=== PATIENT | male | born 1955 | race Asian ===

== ENCOUNTER 2017-07-10 08:02 | Day surgery (SDC) | payer BC, OTHER ==
[2017-07-06 10:28] VITALS: BMI 22.5
[2017-07-10] MEDS ORDERED: LIDOCAINE HCL/PF 2% SDV 5ML VIAL ONE (08:05)
[2017-07-10] MEDS ORDERED: PROPOFOL 20 ML ONE ×2 (08:05)
[2017-07-10 09:20] VITALS: TEMP 98.9
[2017-07-10 09:41] VITALS: BP 106/72; PULSE 67
--- NOTE | 2017-07-12 17:09 | PATH ---
Surgical Pathology Report Patient Name: BALAJI MILES Med. Rec. #: [id number] /Age/Gender: 1955 (Age: 62) / M Account: [id number] Location: [facility]-END[facility]COPY Taken: 07/10/2017 Received: 07/10/2017 Reported: 07/12/2017 Physicians: Kelechi Campos M.D. Specimen(s) Received ASCENDING Clinical History Preoperative diagnosis: Family history of colon cancer Postoperative diagnoses: Polyp Final Diagnosis ASCENDING, BIOPSY: COLONIC MUCOSA SHOWING BENIGN/REACTIVE LYMPHOID AGGREGATE. Electronically Signed Tierney Pathak M.D. Gross Description Received in formalin, labeled "ascending" is a lemons, irregular portion of soft tissue measuring 0.2 cm. in greatest dimension. The specimen is submitted in toto in one cassette. 07/11/201707/11/2017
== END 2017-07-10 09:45 | disposition home or self-care (01) ==
LOC: FASU-ENDO 08:02
PROVIDERS: ATTEND Internal Medicine Gastroenterology
PROC: 0DBK8ZX Excision of Ascending Colon, Via Natural or Artificial Opening Endoscopic, Diagnostic (ICD-10-PCS; principal; 2017-07-10 08:49)
DX: Z12.11 Encounter for screening for malignant neoplasm of colon (principal); Z80.0 Family history of malignant neoplasm of digestive organs; Z83.71 Family history of colonic polyps; D12.2 Benign neoplasm of ascending colon
CPT/HCPCS: 88305-TC

== ENCOUNTER 2022-06-01 08:15 | Day surgery (SDC) | payer BC ==
[2022-05-25 13:31] VITALS: BMI 21.5
[2022-06-01 10:29] VITALS: RESP 18; TEMP 98
[2022-06-01 10:31] VITALS: BP 115/68; PULSE 65
== END 2022-06-01 10:56 | disposition home or self-care (01) ==
LOC: FASU-ENDO 08:15
PROVIDERS: ATTEND Internal Medicine Gastroenterology
PROC: 0DJD8ZZ Inspection of Lower Intestinal Tract, Via Natural or Artificial Opening Endoscopic (ICD-10-PCS; principal; 2022-06-01 09:51)
DX: Z12.11 Encounter for screening for malignant neoplasm of colon (principal); K57.30 Diverticulosis of large intestine without perforation or abscess without bleeding; Z86.010 Personal history of colon polyps; Z80.0 Family history of malignant neoplasm of digestive organs; Z83.71 Family history of colonic polyps